=== PATIENT | female | born 1945 | race Caucasian/White ===

== ENCOUNTER 2020-09-12 16:26 | Emergency (ER) | payer MEDICARE, BC ==
[2020-09-12 16:41] VITALS: BP 144/85; TEMP 97.4; O2SAT 95
[2020-09-12] MEDS ORDERED: IODOFORM 1/4 INCH 1 EA BTTL TOP ONE (16:46)
[2020-09-12] MEDS ORDERED: CLINDAMYCIN HCL CAP 150 MG CAP PO ONE (16:49)
[2020-09-12] MEDS ORDERED: traMADol HCL 50 MG TAB PO ONE (16:50)
[2020-09-12] MEDS ORDERED: ACETAMINOPHEN 325 MG TAB PO ONE (16:50)
[2020-09-12] MEDS ORDERED: ONDANSETRON ODT 8 MG TAB SL ONE (16:51)
[2020-09-12] MEDS ORDERED: NEOMYCIN-BACITRACIN-POLYMYXIN 0.9 GM UD TOP ONE (16:57)
--- NOTE | 2020-09-12 17:00 | ED.PDOC ---
History of Present Illness - General Chief Complaint: General Stated Complaint: right index finger swelling x 4 days Time Seen by Provider: 09/12/20 16:54 Source: patient - History of Present Illness Initial Comments: SWELLING, PAIN AND ERYTHEMA TO RIGHT INDEX FINGER, RADIAL SIDE NAIL FOLD X 2 DAYS. NO HX OF MRSA IN THE PAST. Allergies/Adverse Reactions: Allergies NO KNOWN ALLERGY Allergy (Verified 09/12/20 16:32) Home Medications: Ambulatory Orders Clindamycin HCl [Cleocin] 450 mg PO TID 5 Days #45 cap 09/12/20 Ondansetron Odt [Zofran ODT] 8 mg PO Q6H PRN #10 tab 09/12/20 Tramadol HCl [Ultram] 50 mg PO Q4H PRN #15 tab 09/12/20 Venlafaxine HCl [Effexor Tab] 150 mg PO BID 09/12/20 Review of Systems - Review of Systems Constitutional: States: no symptoms reported EENTM: States: no symptoms reported Cardiology: States: no symptoms reported Past Medical History (General) - Patient Medical History Hx Stroke: No Hx Congestive Heart Failure: No Hx Diabetes: No Surgical History: no surgical history - Vaccination History Hx Influenza Vaccination: Yes Hx Pneumococcal Vaccination: No - Social History Hx Tobacco Use: No Family Medical History - Family History Mother Family History: Unknown Living Status: Unknown Physical Exam - Physical Exam General Appearance: Alert Respiratory: no respiratory distress, no accessory muscle use Extremity: inflammation, swelling, other - SUPERFICIAL PURULULENT AREA UNRUPTERED RADIAL SIDE NAIL FOLD INDEX FINGER RIGHT HAND. Procedures - Incision and Drainage #1 Procedure and Prep: betadine prep, wound culture collected, pus drained Blade Size: STERILE SCISSORS. Procedure Comments: SMALL PIECE OF PACKING PLACED. Departure - Departure Clinical Impression: Paronychia Time of Disposition: 16:57 Disposition: Discharge to Home or Self Care Condition: Good Departure Forms: ED Discharge - Pt. Copy, Patient Portal Self Enrollment Prescriptions: Clindamycin HCl [Cleocin] 450 mg PO TID 5 Days #45 cap Tramadol HCl [Ultram] 50 mg PO Q4H PRN #15 tab PRN Reason: pain Ondansetron Odt [Zofran ODT] 8 mg PO Q6H PRN #10 tab PRN Reason: Nausea Home Medications: Ambulatory Orders Clindamycin HCl [Cleocin] 450 mg PO TID 5 Days #45 cap 09/12/20 Ondansetron Odt [Zofran ODT] 8 mg PO Q6H PRN #10 tab 09/12/20 Tramadol HCl [Ultram] 50 mg PO Q4H PRN #15 tab 09/12/20 Venlafaxine HCl [Effexor Tab] 150 mg PO BID 09/12/20 Additional Instructions: take 650 mg of tylenol with ultram. pull packing in 24 hours, clean twice daily with q tip and [id number].
== END 2020-09-12 17:16 | disposition home or self-care (01) ==
LOC: ER 16:26
DX: L03.011 Cellulitis of right finger (principal)